=== PATIENT | male | born 1940 | race Caucasian/White ===

== ENCOUNTER → 2016-10-23 | Outpatient (CLI) | payer OTHER, MEDICARE ==
[~2016-10-23] MED LIST: ACET500C6 PO; ASPI81TA28 PO; ATOR10TA88 PO; CLR10 PO; FINA5TAB PO; FLUT0.0529 NAE; KETO10TA PO; LISI-461 PO; OXYC-57 PO; OXYM0.0592 NAE; STLS PO; ZNTT/150 PO
[2016-10-23 14:43] LABS: BASO % 0.5 %; BASO ABS # 0.05 K/uL (0-0.2); COMPLETE YES; EOS % 1.7 %; HEMATOCRIT 45.8 % (42-52); IG% 0.3 %; LYMPH % 18.3 %; LYMPH ABS # 1.77 K/uL (1.2-3.4); MEAN CELL VOLUME 90.9 fL (80-100); MEAN CORPUSCULAR HEMOGLOBIN 31.3 pg (25-34); MEAN CORPUSCULAR HGB CONC 34.5 g/dl (32-36); MEAN PLATELET VOLUME 10.8 fL (7.4-10.4); MONO % 11.6 %; NEUT % 67.6 %; PLATELET COUNT 234 K/uL (130-400); RED BLOOD COUNT 5.04 M/uL (4.7-6.1); WHITE BLOOD COUNT 9.66 K/uL (4.8-10.8)
[2016-10-23 15:13] LABS: BLOOD UREA NITROGEN 19 mg/dl (7-18); BUN/CREATININE RATIO 17.5 (10-20); CALCIUM 9.4 mg/dl (8.5-10.1); CARBON DIOXIDE 26 mmol/L (21-32); CHLORIDE 105 mmol/L (98-107); GLUCOSE 83 mg/dl (70-99); POTASSIUM 4.1 mmol/L (3.5-5.1); SODIUM 140 mmol/L (136-145)
== END | disposition home or self-care (01) ==
LOC: C.CPL 12:42
PROVIDERS: ATTEND Orthopaedic Surgery
DX: Z01.818 Encounter for other preprocedural examination (principal); M75.122 Complete rotator cuff tear or rupture of left shoulder, not specified as traumatic; Z12.5 Encounter for screening for malignant neoplasm of prostate; N35.9 Urethral stricture, unspecified

== ENCOUNTER → 2016-11-08 | Day surgery (SDC) | payer OTHER, MEDICARE ==
[2016-10-30 12:08] VITALS: Ht 157.5 cm; Wt 78.2 kg
[~2016-11-08] VITALS: Ht 157.5 cm; Wt 78.2 kg
[~2016-11-08] MED LIST changes: +ATROPINE SULFATE 0.1 MG/ML 5ML SYR IV PRN; +BUPIVACAINE/EPINEPHRINE 0.25% 1:200,000 30 ML VIAL ONE; +CEFAZOLIN 2000 MG/60 ML D5W IV SCH; +EpHEDrine SULFATE INJ 50 MG/ML AMP IV PRN; +EpINEphrine INJ 1MG/ML AMP 1 MG/ML AMP ONE; +FENTANYL CITRATE INJ 50 MCG/1 ML 2 ML VIAL IV PRN; +FENTANYL CITRATE INJ 50 MCG/1 ML 2 ML VIAL ONE; +FLUMAZENIL 0.1 MG/1 ML 10 ML VIAL IV PRN; -FLUT0.0529 NAE; +HYDROmorphone INJ 2 MG/ML SYR/VIAL IV PRN; +KETAMINE HCL INJ 50 MG/ML 10 ML VIAL ONE; +LABETALOL HCL IV 5 MG/ML 20ML IV PRN; +LACTATED RINGER'S 1000ML 1,000 ML IV SCH; +LIDOCAINE HCL 2% 2 ML VIAL (20MG/ML) ONE; +MEPERIDINE HCL 25 MG/ML CARP IV PRN; +MIDAZOLAM HCL 1 MG/ML 2ML VIAL ONE; +NALOXONE HCL 0.4 MG/1 ML VIAL/CARP IV PRN; +ONDANSETRON INJ 2 MG/ML 2 ML VIAL IV PRN; +ONDANSETRON INJ 2 MG/ML 2 ML VIAL ONE; +OXYCODONE/ACETAMINOPHEN 5-325 TAB PO PRN; +PHENYLEPHRINE 100MCG/ML 5ML SYR IV PRN; +PROPOFOL IV EMULSION 10 MG/ML 20 ML VIAL IV ONE; +SODIUM CHLORIDE 0.9% 1000ML 1,000 ML IV SCH
--- NOTE | 2016-11-08 13:57 | History & Physical Bridge - [place] ---
H&P Re-Evaluation Bridge Note: I have examined the patient, reviewed the History & Physical and in the interval since the performance of the History & Physical I have noted the following changes of clinical significance: No changes noted
--- NOTE | 2016-11-08 15:22 | [facility] Post Operative Brief Note ---
Immediate Operative Summary Operative Date Nov 08, 2016. Pre-Operative Diagnosis Left Shoulder Full Thickness Rotator Cuff Tear Post-Operative Diagnosis Same Procedure(s) Performed Left Shoulder Arthroscopy, Medium Rotator Cuff Repair, Acromioplasty, Biceps Tenodesis, Distal Clavicle Resection Surgeon Dr Garcia Plate Conditioner Surgeon(s) Shola Sarabia PA-C Estimated Blood Loss Trace Findings as above Specimens None Complication(s) None Disposition Recovery Room / PACU
--- NOTE | 2016-11-08 15:35 | Discharge Instructions-SurgCtr ---
Discharge Instructions Visit Reason for Visit: Left Shoulder Full Thickness Rotator Cuff Tear Discharge Discharge Diagnosis / Problem: SAME ABOVE Discharge Goals Goal(s): Decrease discomfort, Improve function Activity Recommendations Activity Limitations: as noted below Lifting Limitations: until after follow-up appointment Exercise/Sports Limitations: until after follow-up appointment Driving or Machine Use: MAY NOT DRIVE UNTIL FOLLOW-UP Anesthesia . Post Anesthesia Instructions: If you have had General Anesthesia or IV Sedation: * Do not drive today. * Resume driving when surgeon permits. * Do not make important decisions or sign legal documents today. * Call surgeon for: 1. Temperature elevations greater than 101 degrees F. 2. Uncontrollable pain. 3. Excessive bleeding. 4. Persistent nausea and vomiting. 5. Medication intolerance (nausea, vomiting or rash). * For nausea and vomiting use only clear liquids such as: tea, soda, bouillon until nausea subsides, then gradually increase diet as tolerated. * If you have any concerns or questions, call your surgeon's office. If physician is unavailable and it is an emergency, call 911 or go to the nearest emergency room. . Instructions / Follow-Up Instructions / Follow-Up MEDICATIONS: * Resume previous medications unless instructed otherwise by your surgeon. * Always take pain medication on a full stomach or with food to avoid upset stomach. * Do not drink alcohol or drive while taking narcotics. * Ibuprofen or Tylenol may be taken if narcotic not needed. SPECIAL CARE INSTRUCTIONS: __ None _X_ Keep extremity elevated and iced x 48 hours; apply ice 20-30 minutes 8-10 times/day. May remove at night. __ Sling __24 hrs/day __ Remove at night _X_ Shoulder Immobilizer (MAY REMOVE AFTER 48 ONLY FOR THERAPY AND TO SHOWER) _X_ 24 hrs/day __ Remove at night _X_ Dressing __ Maintain until seen in office, may shower with plastic over site _X_ Remove dressings in 24-48 hours and then may shower _X_ Cover incisions with band-aids after showering __ Do not remove steri-strips Call physician if chills or temperature rises above 102 degrees or pain unrelieved by prescribed pain medications at . . Diet Recommendations Home Diet: no limitations Fluid Restriction: None Procedures Procedures Performed: Left Shoulder Arthroscopy, Medium Rotator Cuff Repair, Acromioplasty, Biceps Tenodesis, Distal Clavicle Resection Pending Studies Studies pending at discharge: no Work Instructions Return To Work: after follow-up Lifting Limitations: NO LIFTING WITH LEFT ARM Medical Emergencies . Who to Call and When: Medical Emergencies: If at any time you feel your situation is an emergency, please call 911 immediately. . Non-Emergent Contact Non-Emergency issues call your: Primary Care Provider Call Non-Emergent contact if: you have a fever, temperature is above 101.5 . . "Provider Documentation" section prepared by Ashwin Sarabia.
--- NOTE | 2016-11-08 15:44 | Anesthesia Progress Nt - [facility] ---
Anesthesia Post Op Note Date & Time Nov 08, 2016 at 15:45 Vital Signs Pain Intensity: 0 Vital Signs Past 12 Hours Date Time Temp Pulse Resp B/P Pulse Ox O2 Delivery O2 Flow Rate FiO2 11/08/16 15:32 36.8 86 16 135/90 97 Mask 6 11/08/16 13:57 0 11/08/16 13:52 73 11/08/16 13:52 73 0 95 11/08/16 13:51 76 11/08/16 13:51 76 0 95 11/08/16 13:46 80 31 95 11/08/16 13:46 79 11/08/16 13:45 67 11/08/16 13:45 70 23 96 11/08/16 13:43 122/84 11/08/16 13:40 68 7 97 11/08/16 13:40 67 11/08/16 13:39 135/103 11/08/16 13:38 73 5 11/08/16 13:33 62 0 136/79 11/08/16 13:32 66 4 143/60 96 11/08/16 13:32 66 11/08/16 13:27 74 0 11/08/16 13:22 63 0 11/08/16 13:17 64 0 11/08/16 13:12 65 0 11/08/16 13:07 67 0 11/08/16 13:02 65 0 11/08/16 11:41 36.6 73 16 120/70 95 Room Air Notes Mental Status: alert / awake / arousable, participated in evaluation Pt Amnestic to Procedure: Yes Nausea / Vomiting: adequately controlled Pain: adequately controlled Airway Patency, RR, SpO2: stable & adequate BP & HR: stable & adequate Hydration State: stable & adequate Anesthetic Complications: no major complications apparent
[2016-11-08 15:56] VITALS: TEMP 36.8
--- NOTE | 2016-11-08 16:10 | OPERATIVE REPORT ---
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 POSTOPERATIVE DIAGNOSES: Same. PROCEDURES: Left shoulder diagnostic arthroscopy with limited debridement, distal clavicle resection, acromioplasty, medium sized degenerative rotator cuff repair, and arthroscopic biceps tenodesis. SURGEON: Dr. Joni Garcia. FLIGHT CONTROL SPECIALIST: Shola Sarabia PA-C, whose assistance was necessary for positioning the arm and helping with instrumentation. ANESTHESIA: Sedation with a left interscalene nerve block. COMPLICATIONS: None. CONDITION: Stable to PACU. INDICATIONS FOR PROCEDURE: Danilo is a pleasant 76-year-old male who presented to my office with complaints of a 6-month history of left shoulder pain. MRI and clinical examination were diagnostic for degenerative medium size cuff tear. After failing conservative treatment, he elected to undergo arthroscopy. DESCRIPTION OF PROCEDURE: On 11/08/2016, he arrived at [facility] for the above procedure. He was seen in the preoperative holding area and the operative extremity was identified and signed. He was given a preoperative antibiotic and a left interscalene nerve block. He was taken back to the operating room, laid on the table in supine position, given basic sedation. He was put into the beach chair position. The left shoulder was prepped and draped in sterile fashion. Time-out was done and the patient and operative extremity was properly identified. A scope was introduced in the posterior portal. Diagnostic arthroscopy showed no cartilage damage to the humeral head or the glenoid. There was some fraying of the anterior superior labrum. The biceps tendon was very frayed. There was a tear of the entire supraspinatus. The infraspinatus, teres minor and subscapularis were intact. An anterior portal was made. A shaver was used to do a limited debridement of the intraarticular structures and the biceps tendon was arthroscopically tenotomized. The scope was then put into the subacromial space. A lateral portal was made. A shaver was used to do a complete subacromial and subdeltoid bursectomy. An ablator was used to tease the coracoacromial ligament off the undersurface of the acromion and a 5-0 rudolph was used to complete an acromioplasty of a Bigliani type 3 acromion. A shaver was used to remove any excess debris and attention was turned to the rotator cuff. An additional anterolateral portal was made and Nicole cannulas were placed in each of the lateral portals. The greater tuberosity was prepared with a ring curette and a microfracture. The rotator cuff was then fixed with an Arthrex SpeedBridge configuration using 4.5 mm BioComposite SwiveLock suture anchors. This gave a nice repair. A FiberLink was placed around the biceps tendon that was attached to the anterior lateral anchor to complete an arthroscopic biceps tenodesis. Multiple pictures were taken. Attention was turned to the distal clavicle. Through an anterior portal, a shaver and ablator were used to skeletonize the distal clavicle. A 5-0 rudolph was then used to resect the distal 5 mm from the clavicle. Complete resection was checked under direct visualization. Arthroscopic instruments were removed from the shoulder. The scope was placed back into the glenohumeral joint. The articular margin of the rotator cuff had been restored. Pictures were taken. Arthroscopic instruments were removed from the shoulder. Portal sites were closed with 3-0 nylon. He was then placed in a soft dressing and abduction arm sling. He was then taken to the postanesthesia care unit in stable condition. He tolerated the procedure well. I attest to the content of the Intraoperative Record and any orders documented therein. Any exceptio ns are noted below.
[2016-11-08 16:14] VITALS: BP 129/87; O2SAT 94
== END | disposition home or self-care (01) ==
LOC: X.SURG 10:57
PROVIDERS: ATTEND Orthopaedic Surgery
DX: M75.102 Unspecified rotator cuff tear or rupture of left shoulder, not specified as traumatic (principal); M19.019 Primary osteoarthritis, unspecified shoulder; M75.22 Bicipital tendinitis, left shoulder; K21.9 Gastro-esophageal reflux disease without esophagitis; I10 Essential (primary) hypertension

== ENCOUNTER → 2016-12-26 | Outpatient (CLI) | payer OTHER, MEDICARE ==
[~2016-12-26] MED LIST changes: +ATOR10TA82 PO; -ATOR10TA88 PO; -ATROPINE SULFATE 0.1 MG/ML 5ML SYR IV PRN; -BUPIVACAINE/EPINEPHRINE 0.25% 1:200,000 30 ML VIAL ONE; -CEFAZOLIN 2000 MG/60 ML D5W IV SCH; -EpHEDrine SULFATE INJ 50 MG/ML AMP IV PRN; -EpINEphrine INJ 1MG/ML AMP 1 MG/ML AMP ONE; -FENTANYL CITRATE INJ 50 MCG/1 ML 2 ML VIAL IV PRN; -FENTANYL CITRATE INJ 50 MCG/1 ML 2 ML VIAL ONE; -FLUMAZENIL 0.1 MG/1 ML 10 ML VIAL IV PRN; -HYDROmorphone INJ 2 MG/ML SYR/VIAL IV PRN; -KETAMINE HCL INJ 50 MG/ML 10 ML VIAL ONE; -LABETALOL HCL IV 5 MG/ML 20ML IV PRN; -LACTATED RINGER'S 1000ML 1,000 ML IV SCH; -LIDOCAINE HCL 2% 2 ML VIAL (20MG/ML) ONE; -MEPERIDINE HCL 25 MG/ML CARP IV PRN; -MIDAZOLAM HCL 1 MG/ML 2ML VIAL ONE; -NALOXONE HCL 0.4 MG/1 ML VIAL/CARP IV PRN; -ONDANSETRON INJ 2 MG/ML 2 ML VIAL IV PRN; -ONDANSETRON INJ 2 MG/ML 2 ML VIAL ONE; -OXYCODONE/ACETAMINOPHEN 5-325 TAB PO PRN; -PHENYLEPHRINE 100MCG/ML 5ML SYR IV PRN; -PROPOFOL IV EMULSION 10 MG/ML 20 ML VIAL IV ONE; -SODIUM CHLORIDE 0.9% 1000ML 1,000 ML IV SCH
[2016-12-26 17:22] LABS: BASO % 0.4 %; BASO ABS # 0.04 K/uL (0-0.2); COMPLETE YES; EOS % 2.4 %; HEMATOCRIT 43.5 % (42-52); IG% 0.2 %; LYMPH % 19.9 %; LYMPH ABS # 1.77 K/uL (1.2-3.4); MEAN CORPUSCULAR HEMOGLOBIN 30.3 pg (25-34); MEAN CORPUSCULAR HGB CONC 33.3 g/dl (32-36); MEAN PLATELET VOLUME 10.8 fL (7.4-10.4); MONO % 11.9 %; NEUT % 65.2 %; PLATELET COUNT 225 K/uL (130-400); RED BLOOD COUNT 4.78 M/uL (4.7-6.1); WHITE BLOOD COUNT 8.89 K/uL (4.8-10.8)
[2016-12-26 17:29] LABS: ALT/SGPT 28 U/L (12-78); BLOOD UREA NITROGEN 18 mg/dl (7-18); BUN/CREATININE RATIO 16.3 (10-20); CALCIUM 8.9 mg/dl (8.5-10.1); CARBON DIOXIDE 22 mmol/L (21-32); CHLORIDE 108 mmol/L (98-107); CHOLESTEROL 156 mg/dl (0-200); GLUCOSE 136 mg/dl (70-99); POTASSIUM 4.1 mmol/L (3.5-5.1); SODIUM 140 mmol/L (136-145)
[2016-12-26 17:32] LABS: ALKALINE PHOSPHATASE 54 U/L (45-117); AST/SGOT 20 U/L (15-37); CHOLESTEROL/HDL RATIO 3.8; HDL CHOLESTEROL 41 mg/dl; LDL CHOLESTEROL CALCULATED 85 mg/dl; TRIGLYCERIDES 149 mg/dl (0-150); VERY LOW DENSITY LIPOPROT CALC 30 mg/dl
[2016-12-27 06:03] LABS: ESTIMATED AVERAGE GLUCOSE 143 mg/dl; HA1C FLAG Normal (Normal)
--- NOTE | 2017-01-01 08:44 | CODING QUERY MEDICAL NECESSITY ---
SUPPORTING DIAGNOSIS NEEDED Dr. Krueger, A supporting diagnosis is required for the test/procedure performed on this patient in order for us to be reimbursed by the patient's insurance. Please provide a supporting diagnosis for the following test/procedure listed below next to the test name along with your signature. *If there is no additional diagnosis for this patient that would support the following test/procedure please document that below next to the test/procedure. Test(s)/Procedure(s) that require a supporting diagnosis: * [id number] GLYCATED HEMOGLOBIN DIAGNOSIS: DATE OF SERVICE: 12/26/16 Provider Signature: Date: Thank you Ernie Skelton [facility] Information Management Once completed, please kindly fax back to [phone] For questions please call [phone]
== END | disposition home or self-care (01) ==
LOC: C.LABPBG 12:56
PROVIDERS: ATTEND Internal Medicine
DX: G62.9 Polyneuropathy, unspecified (principal); E11.9 Type 2 diabetes mellitus without complications

== ENCOUNTER → 2017-01-02 | Outpatient (CLI) | payer OTHER, MEDICARE ==
--- NOTE | 2017-01-02 08:43 | DIAGNOSTIC IMAGING REPORT ---
ULTRASOUND OF THE ABDOMINAL AORTA CLINICAL HISTORY: Abdominal aortic aneurysm. COMPARISON STUDY: Abdominal CT dated 12/16/2014. TECHNIQUE: Multiple robb scale, color Doppler, and spectral Doppler sonograms of the abdominal aorta and iliac arteries are performed. Images are reviewed in the transverse and longitudinal planes. FINDINGS: There is advanced atherosclerotic calcification and irregularity noted throughout the abdominal aorta. The proximal abdominal aorta measures up to 2.1 cm. There is a small fusiform aneurysm of the mid to distal abdominal aorta which measures 3.1 x 3.2 cm. This has not significant change from the [address] scan. The distal abdominal aorta above the iliac bifurcation measures up to 2.0 cm. The iliac vessels are not well visualized. Normal Doppler waveform are seen within the abdominal aorta. IMPRESSION: There is a 3.1 x 3.2 cm aneurysm of the mid to distal abdominal aorta. Electronically signed by: Morgan Howell M.D. 01/02/2017 8:41 AM Dictated Date/Time: 01/02/2017 8:38 AM
== END | disposition home or self-care (01) ==
LOC: C.ULTRBC 08:07
PROVIDERS: ATTEND Internal Medicine
DX: Z00.00 Encounter for general adult medical examination without abnormal findings (principal)

== ENCOUNTER → 2017-06-27 | Outpatient (CLI) | payer OTHER, MEDICARE ==
[~2017-06-27] MED LIST changes: -ATOR10TA82 PO; +ATOR10TA88 PO; -KETO10TA PO; -OXYC-57 PO
== END | disposition home or self-care (01) ==
LOC: C.LABPBG 08:16
PROVIDERS: ATTEND Internal Medicine
DX: Z00.00 Encounter for general adult medical examination without abnormal findings (principal)

== ENCOUNTER → 2018-01-27 | Outpatient (CLI) | payer OTHER, MEDICARE ==
[~2018-01-27] MED LIST changes: +ATOR10TA82 PO; -ATOR10TA88 PO; +RANI150T85 PO; -ZNTT/150 PO
[2018-01-27 13:13] LABS: BASO % 0.4 %; BASO ABS # 0.03 K/uL (0-0.2); EOS % 2.7 %; EOS ABS # 0.21 K/uL (0-0.5); HEMATOCRIT 46.1 % (42-52); HEMOGLOBIN 15.4 g/dL (14.0-18.0); IG# 0.01 K/uL (0.00-0.02); LYMPH % 23.4 %; LYMPH ABS # 1.79 K/uL (1.2-3.4); MEAN CELL VOLUME 91.5 fL (80-100); MEAN CORPUSCULAR HEMOGLOBIN 30.6 pg (25-34); MEAN CORPUSCULAR HGB CONC 33.4 g/dl (32-36); MEAN PLATELET VOLUME 10.7 fL (7.4-10.4); MONO % 9.9 %; MONO ABS # 0.76 K/uL (0.11-0.59); NEUT % 63.5 %; NEUT ABS # 4.85 K/uL (1.4-6.5); PLATELET COUNT 214 K/uL (130-400); RED CELL DISTRIBUTION WIDTH CV 13.6 % (11.5-14.5); RED CELL DISTRIBUTION WIDTH SD 45.5 fL (36.4-46.3); WHITE BLOOD COUNT 7.65 K/uL (4.8-10.8)
[2018-01-27 13:31] LABS: ALBUMIN 3.9 gm/dl (3.4-5.0); ALT/SGPT 22 U/L (12-78); AST/SGOT 16 U/L (15-37); BLOOD UREA NITROGEN 19 mg/dl (7-18); CALCIUM 9.1 mg/dl (8.5-10.1); CARBON DIOXIDE 27 mmol/L (21-32); CHOLESTEROL 150 mg/dl (0-200); GLUCOSE 101 mg/dl (70-99); POTASSIUM 4.6 mmol/L (3.5-5.1); SODIUM 139 mmol/L (136-145)
[2018-01-27 13:41] LABS: HEMOGLOBIN A1C 6.6 % (4.5-5.6)
[2018-01-27 13:42] LABS: ALKALINE PHOSPHATASE 49 U/L (45-117); LDL CHOLESTEROL CALCULATED 84 mg/dl; TOTAL PROTEIN 7.8 gm/dl (6.4-8.2)
== END | disposition home or self-care (01) ==
LOC: C.LABPBG 09:54
PROVIDERS: ATTEND Internal Medicine
DX: Z12.5 Encounter for screening for malignant neoplasm of prostate (principal); I10 Essential (primary) hypertension; E78.5 Hyperlipidemia, unspecified; I25.10 Atherosclerotic heart disease of native coronary artery without angina pectoris; R09.81 Nasal congestion; E11.9 Type 2 diabetes mellitus without complications; J31.0 Chronic rhinitis

== ENCOUNTER → 2018-01-31 | Outpatient (CLI) | payer OTHER ==
--- NOTE | 2018-01-31 08:06 | DIAGNOSTIC IMAGING REPORT ---
AORTIC ANEURYSM RETROPERI CLINICAL HISTORY: 77 years-old Male presenting with I71.4 AAA (abdominal aortic aneurysm)[id number]. TECHNIQUE: Real-time grayscale and color and spectral Doppler ultrasound imaging of the abdominal aorta and iliac arteries was performed. COMPARISON: 01/02/2017. FINDINGS: Proximal aorta: Atherosclerosis. Transverse dimension 1.7 x 2.0 cm. Mid aorta: Atherosclerosis. Transverse dimension 3.0 x 3.4 cm. Distal aorta: Atherosclerosis. Transverse dimension 1.5 x 1.8 cm. Right iliac artery: Patent. Transverse dimension 0.7 cm. Left iliac artery: Patent. Transverse dimension 0.9 cm. IMPRESSION: 1. Mid abdominal aortic aneurysm measuring 3.0 x 3.4 cm, previously 3.1 x 3.2 cm. Electronically signed by: Hermann Flower M.D. 01/31/2018 8:05 AM Dictated Date/Time: 01/31/2018 8:00 AM
== END | disposition home or self-care (01) ==
LOC: C.ULTR 07:26
PROVIDERS: ATTEND Internal Medicine
DX: I71.4 Abdominal aortic aneurysm, without rupture (principal)

== ENCOUNTER 2019-02-02 04:52 | Observation (INO) ==
[2019-02-02 05:27] LABS: Basophils # (auto) 0.05 K/uL (0-0.2); Basophils % (auto) 0.3 %; Eosinophils # (auto) 0.32 K/uL (0-0.5); Eosinophils % (auto) 2.1 %; Hemoglobin 14.9 g/dL (14.0-18.0); Immature Granulocytes # (auto) 0.04 K/uL (0.00-0.02); Immature Granulocytes % (auto) 0.3 %; Lymphocytes # (auto) 2.18 K/uL (1.2-3.4); Lymphocytes % (auto) 14.5 %; Mean Corpuscular Hgb Conc 34.7 g/dL (32-36); Mean Corpuscular Volume 90.5 fL (80-100); Mean Platelet Volume 10.4 fL (7.4-10.4); Monocytes # (auto) 1.35 K/uL (0.11-0.59); Neutrophils # (auto) 11.11 K/uL (1.4-6.5); Neutrophils % (auto) 73.8 %; Platelet Count 249 K/uL (130-400); RDW Coefficient of Variation 13.9 % (11.5-14.5); Red Blood Count 4.75 M/uL (4.7-6.1); White Blood Count 15.05 K/uL (4.8-10.8)
[2019-02-02 05:43] LABS: Albumin Level 3.6 gm/dl (3.4-5.0); BUN Creatinine Ratio 15.4 (10-20); Calcium 9.4 mg/dl (8.5-10.1); Creatinine Clr Calc Pharmacy 49.8 ml/min; Est GFR (African American) 75.2; Est GFR (Non-African American) 64.9; Potassium 4.4 mmol/L (3.5-5.1)
[2019-02-02 05:46] LABS: Albumin Globulin Ratio 0.9 (0.9-2); Bilirubin,Total 1.3 mg/dl (0.2-1); Total Protein 7.6 gm/dl (6.4-8.2)
[2019-02-02 06:04] LABS: Appearance Urine Cloudy (Clear); Bilirubin Urine Negative (Negative); Blood Urine 2+ (Negative); Color Urine Yellow; Glucose Urine UA Negative (Negative); Ketones Urine Negative (Negative); Leukocyte Esterase Urine 3+ (Negative); Nitrite Urine Negative (Negative); Protein Urine Negative (Negative); Specific Gravity Urine <= 1.005 (1.000-1.030); Urobilinogen Urine Negative (Negative)
[2019-02-02 06:17] LABS: WBC Urine >30 /hpf (0-5)
[2019-02-02 06:20] LABS: Bacteria Urine 2+ (Negative)
[2019-02-02] MEDS ORDERED: IMIPENEM/CILASTATIN SODIUM 500 MG in DEXTROSE 5% 100 ML IV STA (06:39)
[2019-02-02] MEDS ORDERED: SODIUM CHLORIDE 0.9% 500 ML IV SCH (06:45)
--- NOTE | 2019-02-02 06:58 | Emergency Department Note ---
Entered by Ashwin Carpenter acting as a scribe for History of Present Illness General Chief complaint: Flank Pain Stated complaint: PAIN IN LEFT SIDE Time Seen by Provider: 02/02/19 05:08 Source: patient History of Present Illness Onset (ago): hour(s) 6 Location: left (flank) Severity: severe Pain Consistency: + constant Maximum Pain Intensity: 9 Associated symptoms: no fever/chills and no nausea/vomiting The patient is a 78 y/o male who presents to the ED w/ CC of constant, severe, left flank pain beginning 6 hours ago. The patient states he has been experiencing intermittent burning with urination for the past week. He reports the burning has become constant with urination now, and he urinates every 15-30 minutes. The patient states he developed constant pain in his left flank about 6 hours ago and prompted his visit to the ED. He denies wanting medication for pain. He notes he felt fine throughout the day yesterday. The patient reports he has a history of kidney stones before, and he had surgery in 1969 to remove his most recent stone. He notes he also recently had a severe infection that required medication for a month and a procedure to stretch his prostate. The patient states Dr. Self was his surgeon. He reports a history of diabetes and takes Metformin for it. The patient denies fevers, chills, nausea, vomiting, and a history of HTN. Home Medications Home Medications Medication Instructions Recorded Confirmed Type aspirin [Aspir-81] 81 mg PO HS 12/03/18 02/02/19 History docusate sodium [Stool Softener] 100 mg PO HS 12/03/18 02/02/19 History finasteride 5 mg PO QAM 12/03/18 02/02/19 History ibuprofen 200 - 400 mg PO QID PRN 12/03/18 02/02/19 History lisinopril 10 mg PO QAM 12/03/18 02/02/19 History metformin 500 mg PO BID 12/03/18 02/02/19 History oxymetazoline 1 spray INTRANASAL Q12H PRN 12/03/18 02/02/19 History ranitidine HCl 150 mg PO DAILY PRN 12/03/18 02/02/19 History atorvastatin 10 mg PO 3XWK 02/02/19 02/02/19 History Allergies Allergy/AdvReac Type Severity Reaction Status Date / Time No Known Allergies Allergy Verified 02/02/19 05:27 Past Med/Surg History Medical History Diabetes mellitus, type 2 GERD (gastroesophageal reflux disease) Hx of abdominal aortic aneurysm UNDER OBSERVATION Q 1 YR-PCP Hyperlipidemia Hypertension Kidney stones Migraine HX Obesity Surgical History H/O shoulder surgery LEFT History of arthroscopy B/L knees History of cystoscopy WITH REMOVAL KIDNEY STONE History of urologic surgery INTERNAL URETHROTOMY X 5-6 Family History Mother Family history of diabetes mellitus Brother Family history of diabetes mellitus Sister Family history of diabetes mellitus Sister Family history of diabetes mellitus Social History Preferred Language: Turkmen Communication Ability: Effective Beliefs That Will Affect Care: None Current Living Situation: Spouse Feels Safe at Home: Yes Smoking Status: Former smoker Second Hand Exposure: No Hx Alcohol Use: No Hx Substance Use: No Review of Systems See HPI for pertinent positives & negatives. and A total of 10 systems reviewed and were otherwise negative Physical Exam Vital Signs Vital Signs - 24 hr 02/02/19 04:55 02/02/19 05:18 02/02/19 06:31 Temperature 36.4 C L Temperature Source Oral Sepsis Recent Fever Within 48 Hours No Sepsis Action Taken by Nursing No Action Required Pulse Rate 70 Pulse Rate [Apical] 65 Pulse Rhythm [Apical] Regular Respiratory Rate 22 18 Respiratory Effort / Characteristics Non-Labored Spontaneous Respiratory Depth Normal Respiratory Pattern Regular Blood Pressure 115/80 Blood Pressure [Left Arm] 126/71 Blood Pressure Mean 91 Blood Pressure Mean [Left Arm] 89 Pulse Oximetry 98 99 98 Oxygen Delivery Method Room Air Room Air Room Air HEENT: Head - normocephalic and atraumatic Pupils are equal, round, and reactive to light. Extraocular eye muscles are intact, and sclera are anicteric. Nose - moist nasal mucosa without discharge. Mouth - moist buccal mucosa. Oropharynx is nonerythematous and there is no tonsillar exudate or edema noted. Neck: Supple; no cervical lymphadenopathy Heart: Regular rate and rhythm. There is a normal S1 and S2 with no murmurs, clicks, or gallops appreciated. Lungs: Clear to auscultation bilaterally with no wheezes, rales, or rhonchi. Abdomen: Soft, completely nontender, nondistended, with good bowel sounds. There are no palpable pulsatile masses or hepatosplenomegaly. There is no guarding, rigidity, or rebound noted. Back: Left CVA tenderness to palpation. Extremities: No evidence of cyanosis, clubbing, or edema. There are easily palpable peripheral pulses. Skin: warm and dry with good turgor and no rashes. Course 0512: The patient was evaluated in room B02. A complete history and physical examination were performed. Nursing notes and previous electronic medical records were reviewed. IV lock was established and labs were drawn as above. 0515: Urine dip stick shows WBCs and RBCs. The patient went for CT scan of the abdomen/pelvis 0610: I reviewed previous electronic medical records including past urine cultures. 0619: The patient states he is comfortable. He explained he was on two antibiotics after his urological procedure. He reports Dr. Self then switched him to a third antibiotic that he was on for a month. 0631: I discussed the patient's case with Dr. Self, Urology. He recommends the patient be brought into the hospital for IV antibiotics because he is extremely resistant. 0638: Discussed the patient's case with Dr. Gan, [facility] Hospitalist. She will pass the case on to the [facility] hospitalist. The patient will be evaluated for further management. 0639: Ordered Imipenem/Cilastatin Sodium 500 mg in dextrose 110 mls @ 100 mls/hr IV 0645: Ordered Sodium Chloride 500 ml @ 125 mls/hr IV. Medical Decision Making Differential Diagnosis Differential diagnosis includes: pyelonephritis, infected kidney stone, ureteral colic, obstructive uropathy. Medical Records Attestation: I reviewed the patient's medical records. Home Medications Current Medication List: was personally reviewed by me Laboratory Data Attestation: I reviewed the patient's lab results. Result diagrams: 02/02/19 05:12 02/02/19 05:12 Lab Results 02/02/19 02/02/19 02/02/19 Range/Units 05:11 05:12 05:12 WBC 15.05 H (4.8-10.8) K/uL RBC 4.75 (4.7-6.1) M/uL Hgb 14.9 (14.0-18.0) g/dL Hct 43.0 (42-52) % MCV 90.5 (80-100) fL MCH 31.4 (25-34) pg MCHC 34.7 (32-36) g/dL RDW Std Deviation 46.0 (36.4-46.3) fL RDW Coeff of [place]w 13.9 (11.5-14.5) % Plt Count 249 (130-400) K/uL MPV 10.4 (7.4-10.4) fL Immature Gran % (Auto) 0.3 % Neut % (Auto) 73.8 % Lymph % (Auto) 14.5 % [place] % (Auto) 9.0 % Eos % (Auto) 2.1 % Baso % (Auto) 0.3 % Immature Gran # (Auto) 0.04 H (0.00-0.02) K/uL Neut # (Auto) 11.11 H (1.4-6.5) K/uL Lymph # (Auto) 2.18 (1.2-3.4) K/uL [place] # (Auto) 1.35 H (0.11-0.59) K/uL Eos # (Auto) 0.32 (0-0.5) K/uL Baso # (Auto) 0.05 (0-0.2) K/uL Sodium 140 (136-145) mmol/L Potassium 4.4 (3.5-5.1) mmol/L Chloride 109 H (98-107) mmol/L Carbon Dioxide 26 (21-32) mmol/L Anion Gap 5.0 (3-11) BUN 17 (7-18) mg/dl Creatinine 1.10 (0.6-1.4) mg/dl Est Cr Clr Drug Dosing 49.8 ml/min Est GFR ( Amer) 75.2 Est GFR (Non-Af Amer) 64.9 BUN/Creatinine Ratio 15.4 (10-20) Glucose 93 (70-99) mg/dl Calcium 9.4 (8.5-10.1) mg/dl Total Bilirubin 1.3 H (0.2-1) mg/dl AST 14 L (15-37) U/L ALT 21 (12-78) U/L Alkaline Phosphatase 51 (45-117) U/L Total Protein 7.6 (6.4-8.2) gm/dl Albumin 3.6 (3.4-5.0) gm/dl Globulin 4.0 (2.5-4.0) gm/dl Albumin/Globulin Ratio 0.9 (0.9-2) Urine Color Yellow Urine Appearance Cloudy A (Clear) Urine pH 6.0 (4.5-7.5) Ur Specific Gilbert <= 1.005 (1.000-1.030) Urine Protein Negative (Negative) Urine Glucose (UA) Negative (Negative) Urine Ketones Negative (Negative) Urine Blood 2+ H (Negative) Urine Nitrite Negative (Negative) Urine Bilirubin Negative (Negative) Urine Urobilinogen Negative (Negative) Ur Leukocyte Esterase 3+ H (Negative) Urine RBC 5-10 H (0-4) /hpf Urine WBC >30 H (0-5) /hpf Ur Epithelial Cells 10-20 H (0-5) /lpf Urine Bacteria 2+ H (Negative) Imaging Data Radiologist's Impression: Radiology results as stated below per my review and the [facility] radiologist's interpretation: CT ABDOMEN & PELVIS Without Contrast: 2 mm nonobstructing stone in the mid left kidney. Mild left pelviectasis and left hydroureter with surrounding fat stranding could be related to a recently passed stone or urinary tract infection. No ureteral stones or bladder stones. Recommend correlation with urinalysis. Diverticulosis without diverticulitis. Normal appendix. No free air or free fluid. Severe atherosclerosis with aneurysmal dilatation of the infrarenal abdominal aorta measuring up to 3.4 cm. Mild reticulations and interstitial opacities in a peripheral and basilar distribution and both lungs suggests interstitial lung disease. Small hiatal hernia. Radiologist: Mao Jasso MD Study ready at 05:44 and initial results transmitted at 05:49 Blood Pressure Blood Pressure Findings: Normal blood pressure Blood Pressure Disposition: did not require urgent referral MDM Narrative The patient is a 78 y/o male who presents to the ED w/ CC of constant, severe, left flank pain beginning 6 hours ago. The patient has a history of urethral stricture with previous episodes of cystitis. It seems now that the patient has an acute left-sided pyelonephritis. Previous urine cultures revealed Proteus mirabilis and E. coli which was highly resistant to oral antibiotics. I do not feel that Macrobid would offer good renal penetration and therefore I discussed the case with his urologist who agreed and recommended admission to the hospital for IV antibiotics. I discussed the case with the [facility] Hospitalist and they will evaluate for further management. Impression & Plan Acute pyelonephritis Discharge Plan Visit Data Chief Complaint: Flank Pain Stated Complaint: PAIN IN LEFT SIDE ED Provider: Hoda Concepcion Discharge Problem: Acute pyelonephritis Patient Disposition: Being Evaluated by Hospitalist Forms Stand Alone Forms: My [facility], Important Visit Information Prescriptions Prescriptions: No Action ibuprofen 200 mg Capsule 200 - 400 mg PO QID PRN (Reason: Pain) RF: 0 aspirin [Aspir-81] 81 mg Tablet,Delayed Release (Dr/Ec) 81 mg PO HS RF: 0 lisinopril 10 mg Tablet 10 mg PO QAM RF: 0 docusate sodium [Stool Softener] 100 mg Capsule 100 mg PO HS RF: 0 ranitidine HCl 150 mg Capsule 150 mg PO DAILY PRN (Reason: Acid Reflux) RF: 0 finasteride 5 mg Tablet 5 mg PO QAM RF: 0 metformin 500 mg Tablet 500 mg PO BID RF: 0 oxymetazoline 0.05 % [place],Non-Aerosol 1 spray INTRANASAL Q12H PRN (Reason: Congestion) RF: 0 atorvastatin 10 mg tablet 10 mg PO 3XWK RF: 0 Referrals Referrals: Hermann Krueger MD [Primary Care Provider] - The scribe's documentation has been prepared under my direction and personally reviewed by me in its entirety. I confirm that the note above accurately reflects all work, treatment, procedures, and medical decision making performed by me.
--- NOTE | 2019-02-02 07:15 | History & Physical Report ---
Date of Service February 02, 2019 Assessment & Plan (1) Acute pyelonephritis: Concern for CT sent can changes on presentation with left hydroureter and fat stranding consistent with possible pyelonephritis. Because of previous drug-resistant organisms the patient is placed on imipenem pending urine cultures visible white count of 15,000 to corroborate likely infection urinalysis on presentation. Allergy consultation to comment on the left hydroureter (2) Hypertension: Continue lisinopril watch renal function (3) Diabetes: Metformin is held sliding scale insulin will be begun (4) DVT prophylaxis: SCDs History of Present Illness Primary Care Provider: Hermann Krueger MD 78 y/o male who presents to the ED w/ CC of constant, severe, left flank pain beginning 6 hours ago. The patient states he has been experiencing intermittent burning with urination for the past week. He reports the burning has become constant with urination. The patient reports he has a history of kidney stones before, and he had surgery in 1969 to revise some injury to his penis. He notes he also recently had a severe infection that required medication for a month and a procedure to stretch his prostate. The patient states Dr. Self was his surgeon. He reports a history of diabetes and takes Metformin for it. Allergies Allergy/AdvReac Type Severity Reaction Status Date / Time No Known Allergies Allergy Verified 02/02/19 05:27 Home Medications Home Medications Medication Instructions Recorded Confirmed Type aspirin [Aspir-81] 81 mg PO HS 12/03/18 02/02/19 History docusate sodium [Stool Softener] 100 mg PO HS 12/03/18 02/02/19 History finasteride 5 mg PO QAM 12/03/18 02/02/19 History ibuprofen 200 - 400 mg PO QID PRN 12/03/18 02/02/19 History lisinopril 10 mg PO QAM 12/03/18 02/02/19 History metformin 500 mg PO BID 12/03/18 02/02/19 History oxymetazoline 1 spray INTRANASAL Q12H PRN 12/03/18 02/02/19 History ranitidine HCl 150 mg PO DAILY PRN 12/03/18 02/02/19 History atorvastatin 10 mg PO 3XWK 02/02/19 02/02/19 History Past Med/Surg History Medical History Diabetes mellitus, type 2 GERD (gastroesophageal reflux disease) Hx of abdominal aortic aneurysm UNDER OBSERVATION Q 1 YR-PCP Hyperlipidemia Hypertension Kidney stones Migraine HX Obesity Surgical History H/O shoulder surgery LEFT History of arthroscopy B/L knees History of cystoscopy WITH REMOVAL KIDNEY STONE History of urologic surgery INTERNAL URETHROTOMY X 5-6 Family History Mother Family history of diabetes mellitus Brother Family history of diabetes mellitus Sister Family history of diabetes mellitus Sister Family history of diabetes mellitus Social History Preferred Language: [place] Communication Ability: Effective Channel Opener Required: No Beliefs That Will Affect Care: None marital status: Current Living Situation: Spouse Other Information That Helps Us Care for You: No Feels Safe at Home: Yes Safety Concerns: Feels Safe At This Time Smoking Status: Former smoker Do You Dip or Chew Tobacco: No Smoking End Date: 1998 Second Hand Exposure: No Tobacco Cessation Education Requested by Patient: No Hx Alcohol Use: No Hx Substance Use: No Review of Systems Review of Systems: ROS: well nourished well developed. No double vision blurry vision No problems with speech or swallowing No palpitations, chest pain or pressure No Wheezing or breathing issues No abdominal pain nausea vomiting diarrhea changes in appetite or weight Burning urine frequency No focal joint pain or muscle pain No skin rashes or oral lesions No unusual bruising or bleeding Left CVA back pain but no numbness or loss of strength No changes in memory or confusion Physical Exam Physical Exam: The patient appeared well nourished and normally developed. Vital signs as documented. Head exam is unremarkable. normocephalic, atraumatic Neck is without jugular venous distension, thyromegaly, or lymphademopathy Lungs are clear to auscultation and percussion. Cardiac exam reveals Rhythm is regular. Systolic ejection murmurs heard Abdominal exam reveals normal bowel sounds, suprapubic tenderness Extremities are nonedematous and both pedal pulses are present Neurologic exam is A&Ox3, no focal deficits, strength is equal bilateral Psychologically seems neither anxious or depressed Skin is warm Dry without bruises or lesions Results & Data Vital Signs (Past 12 Hours) Vital Signs Temp Pulse Pulse Resp BP BP Pulse Ox 02/02/19 07:00 64 15 114/60 98 02/02/19 06:31 65 18 126/71 98 02/02/19 05:18 99 02/02/19 04:55 36.4 C L 70 22 115/80 98
--- NOTE | 2019-02-02 07:22 | CT Scan Report ---
ABDOMEN AND PELVIS CT WITHOUT CONTRAST CT DOSE: 944.65 mGy.cm HISTORY: Left flank pain. eval for left sided stone vs. pyelo TECHNIQUE: Multiaxial CT images of the abdomen and pelvis were performed without contrast. A dose lo wering technique was utilized adhering to the principles of ALARA. COMPARISON STUDY: Abdomen and pelvis CT 12/16/2014. FINDINGS: Mild subpleural reticulation seen within the lung bases as well as a few punctate calcified granulomas. This is consistent with mild fibrotic change. No suspicious lytic or blastic osseous les ions. The unenhanced liver, gallbladder, pancreas, spleen, and adrenal glands are unremarkable. A 3.4 cm infrarenal abdominal aortic aneurysm. Small fat-containing bilateral inguinal hernias. Mild bladd er wall thickening, unchanged. Suboptimal evaluation for bowel pathology due to the lack of intraveno us and oral contrast. However, there is no definite bowel wall thickening or obstruction. Colonic div erticulosis. No evidence for diverticulitis. Small hiatus hernia. A 1 cm hypodense lesion within the right kidney. This is incompletely characterize on this noncontrast study. There are few punctate non obstructing stones within the left kidney. No ureteral stones. No hydronephrosis. There is mild uroth elial thickening and periureteral fat-containing within the left renal collecting system/ureter. No b owel wall thickening or obstruction. Normal appendix. IMPRESSION: 1. Left-sided nephrolithiasis. No ureteral stones. No hydronephrosis. 2. Mild bladder wall thickening as well as mild urothelial thickening involving the left renal collec ting system/ureter. This may represent a cystitis with an associated pyelitis/pyelonephritis. Recomme nd correlation with urinalysis. 3. No definite bowel wall thickening or obstruction. 4. A 3.4 cm infrarenal abdominal aortic aneurysm. 5. Additional findings as described above. Electronically signed by: Nader Henley M.D. 02/02/2019 7:21 AM
[2019-02-02] MEDS ORDERED: MoRPHine SULFATE 2 MG/ML CARP IV STA (07:26)
--- NOTE | 2019-02-02 07:27 | Emergency Department Note ---
ED Visit Note Nurse came to me as patient requested some pain medication. Morphine 2mg IV was ordered. .
[2019-02-02] MEDS ORDERED: LORazepam 0.5 MG/1 ML VIAL IV PRN (10:02)
[2019-02-02] MEDS ORDERED: DEXTROSE 50% 50 ML SYRINGE IV PRN (10:02)
[2019-02-02] MEDS ORDERED: SODIUM CHLORIDE 0.9% 1000ML 1,000 ML IV SCH (10:02)
[2019-02-02] MEDS ORDERED: MoRPHine SULFATE 2 MG/ML CARP IV PRN (10:02)
[2019-02-02] MEDS ORDERED: ONDANSETRON INJ 2 MG/ML 2 ML VIAL IV PRN (10:02)
[2019-02-02] MEDS ORDERED: GLUCAGON FOR INJ 1 MG VIAL SQ PRN (10:02)
[2019-02-02] MEDS ORDERED: GLUCOSE 10 TABS/TUBE PO PRN (10:02)
[2019-02-02] MEDS ORDERED: CARBOHYDRATES FOR HYPOGLYCEMIA PO PRN (10:02)
[2019-02-02] MEDS ORDERED: MoRPHine SULFATE 4 MG/ML 1 ML CARP\\VIAL IV PRN (10:02)
[2019-02-02] MEDS ORDERED: GLUCOSE 40% GEL 15 GM TUBE PO PRN (10:02)
[2019-02-02] MEDS ORDERED: OXYMETAZOLINE 0.05% 30 ML BTL PRN (10:02)
--- NOTE | 2019-02-02 10:14 | Urology Consultation ---
Date of Consultation February 02, 2019 Assessment & Plan (1) Acute pyelonephritis: 78YO male with pyelonephritis. CT without obstruction, no acute surgical intervention at this time. Patient reports continued strong urine stream s/p urethral dilation, will continue to monitor. UC&S pending, continue empiric antibiotics. Thank you for the consult, will continue to follow along with primary service. History of Present Illness Attending Physician: Maury Ho MD History of Present Illness 78YO male with pyelonephritis. Patient is established with Dr. Self, s/p urethral dilation 12/23/18. Patient reports severe flank pain bringing him to the ER last night. Patient reports distant history of kidney stones and was suspicious of stone passage. Also reports dysuria and urethral discharge x [address] abd/pelvis is reviewed: nonobstructing left nephrolithiasis, no ureteral stones, no hydronephrosis, tissue thickening consistent with infection. Remains on empiric imipenem. Patient continues to void spontaneously without difficulty. Strong stream +dysuria. No hematuria. No fevers/chills. No nausea/vomiting. Reports subjectively feeling better since receiving antibiotics. Allergies Allergy/AdvReac Type Severity Reaction Status Date / Time No Known Allergies Allergy Verified 02/02/19 05:27 Home Medications Home Medications Medication Instructions Recorded Confirmed Type aspirin [Aspir-81] 81 mg PO HS 12/03/18 02/02/19 History docusate sodium [Stool Softener] 100 mg PO HS 12/03/18 02/02/19 History finasteride 5 mg PO QAM 12/03/18 02/02/19 History ibuprofen 200 - 400 mg PO QID PRN 12/03/18 02/02/19 History lisinopril 10 mg PO QAM 12/03/18 02/02/19 History metformin 500 mg PO BID 12/03/18 02/02/19 History oxymetazoline 1 spray INTRANASAL Q12H PRN 12/03/18 02/02/19 History ranitidine HCl 150 mg PO DAILY PRN 12/03/18 02/02/19 History atorvastatin 10 mg PO 3XWK 02/02/19 02/02/19 History Patient History Medical History Diabetes mellitus, type 2 GERD (gastroesophageal reflux disease) Hx of abdominal aortic aneurysm UNDER OBSERVATION Q 1 YR-PCP Hyperlipidemia Hypertension Kidney stones Migraine HX Obesity Surgical History H/O shoulder surgery LEFT History of arthroscopy B/L knees History of cystoscopy WITH REMOVAL KIDNEY STONE History of urologic surgery INTERNAL URETHROTOMY X 5-6 Family History Mother Family history of diabetes mellitus Brother Family history of diabetes mellitus Sister Family history of diabetes mellitus Sister Family history of diabetes mellitus Social History Preferred Language: Moroccan Communication Ability: Effective Tableau Analyst Required: No Beliefs That Will Affect Care: None Current Living Situation: Spouse Other Information That Helps Us Care for You: No Feels Safe at Home: Yes Safety Concerns: Feels Safe At This Time Smoking Status: Former smoker Do You Dip or Chew Tobacco: No Smoking End Date: 1998 Second Hand Exposure: No Tobacco Cessation Education Requested by Patient: No Hx Alcohol Use: No Hx Substance Use: No Review of Systems Constitutional: no fever and no chills Eyes: no worsening vision Ear, Nose, Mouth, Throat: no hearing loss Respiratory: no dyspnea Cardiovascular: no chest pain Gastrointestinal: + abdominal pain; no nausea and no vomiting Genitourinary: + dysuria; no difficulty urinating and no hematuria Musculoskeletal: + back pain Neurologic: no confusion Psychiatric: no problem reported Physical Exam Constitutional: WD/WN, vitals as above ENMT: Ears: no hearing impairment Neck: normal visual inspection Respiratory: normal respiratory effort; does not use accessory muscles Cardiovascular: Vessels: no JVD Gastrointestinal (Abdomen): Percussion/Palpation: abdomen soft; abdomen nontender Psychiatric: A+Ox3, euthymic affect Genitourinary: bladder normal to palpation Results & Data Vital Signs (Past 12 Hours) Vital Signs Temp Pulse Pulse Resp BP BP Pulse Ox 02/02/19 09:45 65 18 115/62 69 L 02/02/19 08:57 89 22 115/62 95 02/02/19 07:40 67 20 118/75 99 02/02/19 07:00 64 15 114/60 98 02/02/19 06:31 65 18 126/71 98 02/02/19 05:18 99 02/02/19 04:55 36.4 C L 70 22 115/80 98
[2019-02-02 11:59] LABS: INR 1.1 (0.9-1.1); Prothrombin Time 10.9 Seconds (9.0-12.0)
[2019-02-02] MEDS: LISINOPRIL 10 MG TAB PO SCH (12:10)
[2019-02-02] MEDS: FINASTERIDE 5 MG TAB PO SCH (12:11)
[2019-02-02] MEDS: IMIPENEM/CILASTATIN SODIUM 300 MG in DEXTROSE 5% 100 ML IV SCH ×3 (12:13→23:52)
[2019-02-02] MEDS: INSULIN ASPART 100 UNITS/ML 3 ML PEN SC SCH ×3 (13:15→22:12)
[2019-02-02] MEDS: HEPARIN SOD 5,000 UNIT/0.5 ML VIAL SQ SCH ×2 (13:24→22:02)
--- NOTE | 2019-02-02 15:43 | Infectious Disease Consult ---
Date of Consultation February 02, 2019 Assessment & Plan (1) Acute pyelonephritis: Patient with acute urinary tract infection with possible pyelonephritis with gram-negative bacilli, previously with ESBL producing E. coli. For now imipenem will provide adequate coverage, if same E. coli would change to IV ertapenem to allow easier outpatient therapy as well likely need in the range of 10 to 14 days of IV therapy. Will follow. (2) Oth gram negatv bacteria: History of Present Illness Reason for Consultation: Using Primaxin Attending Physician: Maury Ho MD History of Present Illness 78-year-old male with history of hypertension, diabetes mellitus, with prior urinary tract infections in the setting of urethral stricture. In December underwent dilatation procedure, and reportedly was given 1 month of oral antibiotic for resistant infection. He was now admitted with several days of progressively worsening dysuria, abdominal pain, fever and chills. Imaging studies show no obstruction, does have nephrolithiasis. Urine culture growing gram-negative bacilli, prior culture positive for ESBL producing E. coli. Feeling better since admission. Temperature down. Blood cultures are negative to date. Allergies Allergy/AdvReac Type Severity Reaction Status Date / Time No Known Allergies Allergy Verified 02/02/19 05:27 Home Medications Home Medications Medication Instructions Recorded Confirmed Type aspirin [Aspir-81] 81 mg PO HS 12/03/18 02/02/19 History docusate sodium [Stool Softener] 100 mg PO HS 12/03/18 02/02/19 History finasteride 5 mg PO QAM 12/03/18 02/02/19 History ibuprofen 200 - 400 mg PO QID PRN 12/03/18 02/02/19 History lisinopril 10 mg PO QAM 12/03/18 02/02/19 History metformin 500 mg PO BID 12/03/18 02/02/19 History oxymetazoline 1 spray INTRANASAL Q12H PRN 12/03/18 02/02/19 History ranitidine HCl 150 mg PO DAILY PRN 12/03/18 02/02/19 History atorvastatin 10 mg PO 3XWK 02/02/19 02/02/19 History Patient History Medical History Diabetes mellitus, type 2 GERD (gastroesophageal reflux disease) Hx of abdominal aortic aneurysm UNDER OBSERVATION Q 1 YR-PCP Hyperlipidemia Hypertension Kidney stones Migraine HX Obesity Surgical History H/O shoulder surgery LEFT History of arthroscopy B/L knees History of cystoscopy WITH REMOVAL KIDNEY STONE History of urologic surgery INTERNAL URETHROTOMY X 5-6 Family History Mother Family history of diabetes mellitus Brother Family history of diabetes mellitus Sister Family history of diabetes mellitus Sister Family history of diabetes mellitus Social History Preferred Language: Syriac Communication Ability: Effective Road Supervisor Of Engines Required: No Beliefs That Will Affect Care: None marital status: Current Living Situation: Spouse Other Information That Helps Us Care for You: No Feels Safe at Home: Yes Safety Concerns: Feels Safe At This Time Smoking Status: Former smoker Do You Dip or Chew Tobacco: No Smoking End Date: 1998 Second Hand Exposure: No Tobacco Cessation Education Requested by Patient: No Hx Alcohol Use: No Hx Substance Use: No Review of Systems Review of Systems: All systems reviewed & are unremarkable except as noted in HPI & below Physical Exam Constitutional: WD/WN, vitals as above comfortable; no acute distress Eyes: PERRL, conjunctivae normal, anicteric sclerae ENMT: external ear and nose normal, oropharynx normal Neck: trachea midline, no thyromegaly neck nontender Respiratory: normal respiratory effort, lungs clear to auscultation normal percussion; does not use accessory muscles Cardiovascular: Rate/Rhythm: regular rate and regular rhythm Heart Sounds: normal S1 and normal S2; no gallop, no murmur and no cardiac rub Vessels: normal peripheral pulses; no JVD Gastrointestinal (Abdomen): Inspection/Auscultation: abdomen normal to inspection and normal bowel sounds Percussion/Palpation: + abdomen tender (Lower quadrant); no hepatosplenomegaly and no abdominal mass Musculoskeletal: no cyanosis or clubbing, extremities motor strength 5/5 Spine: thoracic spine normal to inspection and lumbar spine normal to inspection; no cervical spinal tenderness Skin: no rashes, warm and dry normal turgor; no lesions Neurologic: patellar DTR's 2+ bilat, sensation intact no focal motor deficits Psychiatric: A+Ox3, euthymic affect Orientation: cooperative Lymphatic: no cervical or axillary lymphadenopathy no inguinal lymphadenopathy Results & Data Vital Signs (Past 12 Hours) Vital Signs Temp Pulse Pulse Pulse Resp BP BP 02/02/19 15:34 36.7 C 62 18 119/68 02/02/19 12:09 123/72 02/02/19 09:45 65 18 115/62 02/02/19 08:57 89 22 115/62 02/02/19 07:40 67 20 118/75 02/02/19 07:00 64 15 114/60 02/02/19 06:31 65 18 126/71 02/02/19 05:18 02/02/19 04:55 36.4 C L 70 22 115/80 Pulse Ox 02/02/19 15:34 99 02/02/19 12:09 02/02/19 09:45 69 L 02/02/19 08:57 95 02/02/19 07:40 99 02/02/19 07:00 98 02/02/19 06:31 98 02/02/19 05:18 99 02/02/19 04:55 98 Laboratory Results Short CBC 02/02/19 Range/Units 05:12 WBC 15.05 H (4.8-10.8) K/uL Hgb 14.9 (14.0-18.0) g/dL Hct 43.0 (42-52) % Plt Count 249 (130-400) K/uL BMP 02/02/19 05:12 Sodium 140 Potassium 4.4 Chloride 109 H Carbon Dioxide 26 BUN 17 Creatinine 1.10 Glucose 93 Calcium 9.4 Liver Function 02/02/19 Range/Units 05:12 Total Bilirubin 1.3 H (0.2-1) mg/dl AST 14 L (15-37) U/L ALT 21 (12-78) U/L Alkaline Phosphatase 51 (45-117) U/L Albumin 3.6 (3.4-5.0) gm/dl Urine 02/02/19 Range/Units 05:11 Urine Color Yellow Urine Appearance Cloudy A (Clear) Urine pH 6.0 (4.5-7.5) Ur Specific [place] <= 1.005 (1.000-1.030) Urine Protein Negative (Negative) Urine Glucose (UA) Negative (Negative)
[2019-02-02] MEDS: DOCUSATE SODIUM 100 MG CAP PO SCH (22:01)
[2019-02-03] MEDS: IMIPENEM/CILASTATIN SODIUM 300 MG in DEXTROSE 5% 100 ML IV SCH ×3 (05:36→17:59)
[2019-02-03 06:49] LABS: Hematocrit (blood only) 38.1 % (42-52); Hemoglobin 12.8 g/dL (14.0-18.0); Mean Corpuscular Hgb Conc 33.6 g/dL (32-36); Mean Corpuscular Volume 91.4 fL (80-100); Mean Platelet Volume 10.3 fL (7.4-10.4); Platelet Count 204 K/uL (130-400); RDW Coefficient of Variation 14.2 % (11.5-14.5); RDW Standard Deviation 47.5 fL (36.4-46.3); Red Blood Count 4.17 M/uL (4.7-6.1); White Blood Count 7.57 K/uL (4.8-10.8)
[2019-02-03 07:17] LABS: Estimated Average Glucose 137 mg/dl; Hemoglobin A1C 6.4 % (4.5-5.6)
[2019-02-03 07:24] LABS: BUN Creatinine Ratio 14.4 (10-20); Calcium 8.7 mg/dl (8.5-10.1); Creatinine Clr Calc Pharmacy 47.6 ml/min; Est GFR (African American) 71.2; Est GFR (Non-African American) 61.5; Potassium 3.9 mmol/L (3.5-5.1)
[2019-02-03] MEDS: FINASTERIDE 5 MG TAB PO SCH (08:43)
[2019-02-03] MEDS: LISINOPRIL 10 MG TAB PO SCH (08:47)
[2019-02-03] MEDS: HEPARIN SOD 5,000 UNIT/0.5 ML VIAL SQ SCH ×2 (08:48→20:42)
[2019-02-03] MEDS: INSULIN ASPART 100 UNITS/ML 3 ML PEN SC SCH ×4 (08:50→22:03)
--- NOTE | 2019-02-03 15:39 | Infectious Disease Progress Nt ---
Date of Service February 03, 2019 Assessment & Plan (1) Acute pyelonephritis: Patient with acute urinary tract infection with possible pyelonephritis with gram-negative bacilli, previously with ESBL producing E. coli. For now imipenem will provide adequate coverage, if same E. coli would change to IV ertapenem to allow easier outpatient therapy as well likely need in the range of 10 to 14 days of IV therapy. Will follow. (2) Oth gram negatv bacteria: Subjective Feels much better today has less flank pain we are awaiting formal sensitivities from the culture results Review of Systems Review of Systems: All systems reviewed & are unremarkable except as noted in HPI & below Physical Exam Constitutional: WD/WN, vitals as above comfortable; no acute distress Eyes: PERRL, conjunctivae normal, anicteric sclerae ENMT: external ear and nose normal, oropharynx normal Neck: trachea midline, no thyromegaly neck nontender Respiratory: normal respiratory effort, lungs clear to auscultation normal percussion; does not use accessory muscles Cardiovascular: Rate/Rhythm: regular rate and regular rhythm Heart Sounds: normal S1 and normal S2; no gallop, no murmur and no cardiac rub Vessels: normal peripheral pulses; no JVD Gastrointestinal (Abdomen): Inspection/Auscultation: abdomen normal to inspection and normal bowel sounds Percussion/Palpation: + abdomen tender (Lower quadrant); no hepatosplenomegaly and no abdominal mass Musculoskeletal: no cyanosis or clubbing, extremities motor strength 5/5 Spine: thoracic spine normal to inspection and lumbar spine normal to inspection; no cervical spinal tenderness Skin: no rashes, warm and dry normal turgor; no lesions Neurologic: patellar DTR's 2+ bilat, sensation intact no focal motor deficits Psychiatric: A+Ox3, euthymic affect Orientation: cooperative Lymphatic: no cervical or axillary lymphadenopathy no inguinal lymphadenopathy Results & Data Vital Signs (Past 12 Hours) Vital Signs Temp Pulse Resp BP Pulse Ox 02/03/19 08:44 114/53 L 02/03/19 07:11 36.6 C 60 16 115/60 92 Laboratory Results Short CBC 02/03/19 Range/Units 06:34 WBC 7.57 (4.8-10.8) K/uL Hgb 12.8 L (14.0-18.0) g/dL Hct 38.1 L (42-52) % Plt Count 204 (130-400) K/uL BMP 02/03/19 06:34 Sodium 141 Potassium 3.9 Chloride 111 H Carbon Dioxide 24 BUN 17 Creatinine 1.15 Glucose 112 H Calcium 8.7 Diagnostic Findings Microbiology 02/02/19 05:11 Urine,Clean Catch Urine Culture - Preliminary Escherichia coli
--- NOTE | 2019-02-03 18:29 | Urology Progress Note ---
Date of Service February 03, 2019 Assessment & Plan (1) Acute pyelonephritis: Cultures pending, clinically improving with antibiotics. Infectious disease managing. Will arrange outpatient follow up. Subjective 78YO male with pylonephritis. Patient reports feeling well. Voiding spontaneously without bother. No fevers/chills. No nausea/vomiting. Infectious Disease on board for antibiotic management. Review of Systems Review of Systems: All systems reviewed & are unremarkable except as noted in HPI & below Physical Exam Physical Exam: WN/WD NAD. Resp effort normal. No JVD. Abd soft, nontender. A&O x 3, appropriate affect. Results & Data Vital Signs (Past 12 Hours) Vital Signs Temp Pulse Resp BP Pulse Ox 02/03/19 16:17 36.7 C 81 18 122/64 97 02/03/19 15:28 36.5 C 72 18 96/54 L 96 02/03/19 08:44 114/53 L 02/03/19 07:11 36.6 C 60 16 115/60 92
--- NOTE | 2019-02-03 18:52 | Hospitalist Progress Note ---
Date of Service February 03, 2019 Assessment & Plan (1) Acute pyelonephritis: Concern for CT sent can changes on presentation with left hydroureter and fat stranding consistent with possible pyelonephritis. Because of previous drug-resistant organisms the patient is placed on imipenem still awaiting final urine cultures with his history of ESBL Urology consultation feels no intervention needed on left hydroureter (2) Hypertension: Continue lisinopril preserved renal function (3) Diabetes: Metformin is held sliding scale insulin will be begun (4) DVT prophylaxis: SCDs Subjective Feels much better today has less flank pain we are awaiting formal sensitivities from the culture results Review of Systems Review of Systems: ROS: well nourished well developed. No double vision blurry vision No problems with speech or swallowing No palpitations, chest pain or pressure No Wheezing or breathing issues No abdominal pain nausea vomiting diarrhea changes in appetite or weight No burning urine urine frequency or changes in color No focal joint pain or muscle pain No skin rashes or oral lesions No unusual bruising or bleeding No focused back pain or numbness or loss of strength No changes in memory or confusion Physical Exam Physical Exam: The patient appeared well nourished and normally developed. Vital signs as documented. Head exam is unremarkable. normocephalic, atraumatic Neck is without jugular venous distension, thyromegaly, or lymphademopathy Lungs are clear to auscultation and percussion. Cardiac exam reveals Rhythm is regular. First and second heart sounds normal. Abdominal exam reveals normal bowel sounds, no masses, no organomegaly Extremities are nonedematous and both pedal pulses are present Neurologic exam is A&Ox3, no focal deficits, strength is equal bilateral Psychologically seems neither anxious or depressed Skin is warm Dry without bruises or lesions Results & Data Vital Signs (Past 12 Hours) Vital Signs Temp Pulse Resp BP Pulse Ox 02/03/19 16:17 36.7 C 81 18 122/64 97 02/03/19 15:28 36.5 C 72 18 96/54 L 96 02/03/19 08:44 114/53 L 02/03/19 07:11 36.6 C 60 16 115/60 92
[2019-02-03] MEDS: DOCUSATE SODIUM 100 MG CAP PO SCH (20:40)
[2019-02-04] MEDS: IMIPENEM/CILASTATIN SODIUM 300 MG in DEXTROSE 5% 100 ML IV SCH ×3 (00:37→11:33)
[2019-02-04 07:30] LABS: Hematocrit (blood only) 40.5 % (42-52); Hemoglobin 14.2 g/dL (14.0-18.0); Mean Corpuscular Hgb Conc 35.1 g/dL (32-36); Mean Platelet Volume 10.2 fL (7.4-10.4); Platelet Count 235 K/uL (130-400); RDW Standard Deviation 46.1 fL (36.4-46.3); White Blood Count 8.15 K/uL (4.8-10.8)
[2019-02-04 08:05] LABS: BUN Creatinine Ratio 14.7 (10-20); Calcium 9.1 mg/dl (8.5-10.1); Creatinine Clr Calc Pharmacy 44.5 ml/min; Est GFR (African American) 65.7; Est GFR (Non-African American) 56.7; Potassium 4.1 mmol/L (3.5-5.1)
[2019-02-04] MEDS: INSULIN ASPART 100 UNITS/ML 3 ML PEN SC SCH ×2 (09:05→12:41)
[2019-02-04] MEDS: HEPARIN SOD 5,000 UNIT/0.5 ML VIAL SQ SCH (09:05)
[2019-02-04] MEDS: FINASTERIDE 5 MG TAB PO SCH (09:07)
[2019-02-04] MEDS: LISINOPRIL 10 MG TAB PO SCH (09:09)
[2019-02-04] MEDS ORDERED: ERTAPENEM SODIUM 1,000 MG in SODIUM CHLORIDE 0.9% 50 ML IV SCH (12:00)
--- NOTE | 2019-02-04 17:31 | Discharge Summary ---
Date of Service February 04, 2019 Admission HPI Per Admitting Provider 78 y/o male who presents to the ED w/ CC of constant, severe, left flank pain beginning 6 hours ago. The patient states he has been experiencing intermittent burning with urination for the past week. He reports the burning has become constant with urination. The patient reports he has a history of kidney stones before, and he had surgery in 1969 to revise some injury to his penis. He notes he also recently had a severe infection that required medication for a month and a procedure to stretch his prostate. The patient states Dr. Self was his surgeon. He reports a history of diabetes and takes Metformin for it. Principal Diagnosis ESBL E. coli present on admission associated with mild left hydro- Discharge Exam The patient appeared well nourished and normally developed. Vital signs as documented. Head exam is unremarkable. normocephalic, atraumatic Neck is without jugular venous distension, thyromegaly, or lymphademopathy Lungs are clear to auscultation and percussion. Cardiac exam reveals Rhythm is regular. First and second heart sounds normal. Abdominal exam reveals normal bowel sounds, no masses, no organomegaly Extremities are nonedematous and both pedal pulses are present Neurologic exam is A&Ox3, no focal deficits, strength is equal bilateral Psychologically seems neither anxious or depressed Skin is warm Dry without bruises or lesions Discharge Data Allergies Allergy/AdvReac Type Severity Reaction Status Date / Time No Known Allergies Allergy Verified 02/02/19 05:27 Consultations 02/02/19 06:38 ED Decision to Admit Stat 02/02/19 10:02 Consult Urology Routine 02/02/19 11:26 Consult Infectious Diseases Routine Ordered Studies 02/02/19 05:17 CT abd pelvis wo con Urgent Hospital Course (1) Acute pyelonephritis: Concern for CT sent can changes on presentation with left hydroureter and fat stranding consistent with possible pyelonephritis. Because of previous drug-resistant organisms the patient is confirmed urine culture of ESBL Urology consultation feels no intervention needed on left hydroureter Arrangements were made for outpatient antibiotic therapy with some pocket cost to the patient initially patient refused was going to leave AMA. I spent a conversation with his discussing the pros and cons and eventually he agreed. He is given a dose of ertapenem here will be on 12 more additional doses of ertapenem at home to complete a 14-day course. 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 home antibiotics recommended by Infectious disease Discharge Goals: Decrease discomfort Activity: Resume your previous activity Non-emergency contact: Primary Care Provider Call non-emergency contact if: you have any medication questions Follow-up/Referrals: Hermann Krueger MD [Primary Care Provider] - Diet: Carb Consistent or DM2 Addtl Provider Instructions: please drink plenty of liquids, consider taking vitamin C to make your urine more difficult for bacteria to grow Prescriptions: New ertapenem 1 gram recon soln 1 gm IV DAILY 7 Days RF: 0 Continued ibuprofen 200 mg Capsule 200 - 400 mg PO QID PRN (Reason: Pain) RF: 0 aspirin [Aspir-81] 81 mg Tablet,Delayed Release (Dr/Ec) 81 mg PO HS RF: 0 lisinopril 10 mg Tablet 10 mg PO QAM RF: 0 docusate sodium [Stool Softener] 100 mg Capsule 100 mg PO HS RF: 0 ranitidine HCl 150 mg Capsule 150 mg PO DAILY PRN (Reason: Acid Reflux) RF: 0 finasteride 5 mg Tablet 5 mg PO QAM RF: 0 metformin 500 mg Tablet 500 mg PO BID RF: 0 oxymetazoline 0.05 % [place],Non-Aerosol 1 spray INTRANASAL Q12H PRN (Reason: Congestion) RF: 0 atorvastatin 10 mg tablet 10 mg PO 3XWK RF: 0 Stand-Alone Forms: [employer] [facility]/Other Patient Handouts: UTI, Care IV Using IV Abx Discharge Orders: Discharge Order (Routine); Ordered 02/04/19 Ordered By: Maury Ho Admission Data Admit Date/Time: 02/02/19 07:34 Attending Provider: Maury Ho Admit Provider: Maury Ho Primary Care Provider: Hermann Krueger Other Providers: Nilda Gan ; Jim Self ; Yung Yoon Service: Medical Other Interventions: Discharge Summary Assessment (RN) Last Done: 02/04/19 12:44 DC Date/Time DO NOT enter until pt leaves facility: 02/04/19 13:29
== END 2019-02-04 13:29 | disposition home health service (06) ==
LOC: 3W 04:52 → ED 04:52 → 3W 09:48